=== PATIENT | female | born 1980 | race Two or more races ===

== ENCOUNTER 2016-10-25 05:04 | Inpatient (IN) | payer MEDICAID ==
[2016-10-25] MEDS ORDERED: LACTATED RINGERS 1,000 ML IV.SOLN ONE (05:05)
[2016-10-25] MEDS ORDERED: LACTATED RINGERS 1,000 ML ONE (05:08)
[2016-10-25] MEDS ORDERED: IV START KIT ONE (05:08)
[2016-10-25 05:25] VITALS: BMI 31.8
[2016-10-25] MEDS ORDERED: CEFAZOLIN SODIUM 2 GRAM DUPLEX 2 G in Premix (D5W) 50 ml 1 EACH IV PRN (05:39)
[2016-10-25 06:13] LABS: HEMATOCRIT 33.2 % (37.0-47.0); HEMOGLOBIN 11.2 gm/l (12.0-16.0); MEAN CORPUSCULAR HEMOGLOBIN 30.4 pg (27.0-31.0); MEAN CORPUSCULAR HGB CONC 33.7 g/dl (33.0-37.0); RED CELL DISTRIBUTION WIDTH 14.3 % (11.5-14.5)
[2016-10-25] MEDS: LACTATED RINGERS 1,000 ML IV SCH ×4 (06:51→23:13)
[2016-10-25] MEDS ORDERED: CEFAZOLIN SODIUM 2 GRAM DUPLEX 50 ML IV ONE (06:51)
[2016-10-25] MEDS ORDERED: FENTANYL 100 MCG/2 ML VIAL ONE (07:01)
[2016-10-25] MEDS ORDERED: OXYTOCIN 10 UNITS/ML VIAL ONE ×3 (07:01→08:34)
[2016-10-25] MEDS ORDERED: MORPHINE SULFATE (DURAMORPH) 1 MG/ML 10ML AMP ONE (07:01)
[2016-10-25] MEDS ORDERED: SPINAL PROCEDURAL TRAY 1 EACH ONE (07:07)
[2016-10-25] MEDS ORDERED: BUPIVACAINE 0.75% SPINAL AMPUL 2 ML ONE (07:11)
[2016-10-25] MEDS ORDERED: ONDANSETRON 4 MG/2ML 2 ML VIAL IV PRN ×2 (08:00→09:04)
[2016-10-25] MEDS ORDERED: MORPHINE SULFATE 2 MG/ML SYRINGE IV PRN (08:00)
[2016-10-25] MEDS ORDERED: HYDROMORPHONE HCL 2 MG/ML SYRINGE IV PRN (08:00)
[2016-10-25] MEDS ORDERED: EPHEDRINE SULFATE 50 MG/ML 1ML VIAL IV PRN (08:00)
[2016-10-25] MEDS ORDERED: NALOXONE HCL 0.4 MG/ML VIAL IV PRN (08:00)
[2016-10-25] MEDS ORDERED: HYDROMORPHONE HCL 1 MG/ML SYRINGE IV PRN (08:00)
[2016-10-25] MEDS ORDERED: PROMETHAZINE HCL 25 MG/ML VIAL IM PRN (08:00)
[2016-10-25] MEDS ORDERED: MORPHINE SULFATE 4 MG/ML SYRINGE IV PRN (08:00)
[2016-10-25] MEDS ORDERED: NALBUPHINE HCL 20 MG/ML AMP IV PRN (08:00)
[2016-10-25] MEDS ORDERED: MORPHINE SULFATE 10 MG/ML SYRINGE IV PRN (08:00)
[2016-10-25] MEDS ORDERED: DIPHENHYDRAMINE HCL 50 MG/1 ML VIAL IV PRN ×2 (08:00→09:04)
[2016-10-25] MEDS ORDERED: EPHEDRINE SULFATE UD SYR 25 MG 25 MG/5 ML SYRINGE IV ONE ×2 (08:15→08:36)
[2016-10-25] MEDS ORDERED: ONDANSETRON 4 MG/2ML 2 ML VIAL ONE (08:39)
[2016-10-25] MEDS ORDERED: KETOROLAC TROMETHAMINE 30 MG/ML 1 ML VIAL ONE (08:42)
[2016-10-25] MEDS ORDERED: DIPHENHYDRAMINE HCL 25 MG CAPSULE PO PRN (09:04)
[2016-10-25] MEDS ORDERED: LANOLIN 50 APPLIC/7G TUBE TP PRN (09:04)
[2016-10-25] MEDS ORDERED: MEASLES,MUMPS&RUBELLA VACCINE 0.5 ML VIAL SUB-Q V ONE (09:04)
--- NOTE | 2016-10-25 09:11 | PDOC37 ---
Procedure: Repeat Section Date of Procedure: 10/25/16 Start Time: 813 Preoperative Diagnosis: 1. 39 week intrauterine . 2. Repeat section Postoperative Diagnosis: Same Surgeon: Judith Whalen MD Assist: Elizabeth Chaparro MD Indication for Procedure: 36 year old, at 39 weeks 2 days with scheduled repeat section. Patient had a for non reassuring heart tones in 2011 and desired elective repeat. Risks were discussed including bleeding, infection, damage to surrounding organs, transfusion and hysterectomy. She elected to proceed. Anesthesia: Spinal by Dami Figueredo CRNA, with Duramorph Complications: None Estimated Blood Loss: 700 mLs IV Fluids: 3000 mLs of LR Medications: 2 gm of Ancef for routine prophylaxis. 20 units of Pitocin. Urine Output: 225 mLs of clear urine Findings: Fluid with very slight meconium. Normal uterus, ovaries, and tubes. Vertex, OA, male infant, apgars 9/9, weight 3985 gm (8 lb 13 oz). Procedure: The patient was taken to the operating room where spinal anesthesia was found to be adequate. She was then prepared and draped in the normal sterile fashion in the dorsal supine position with a leftward tilt. A timeout was performed. A Pfannensteil skin incision was then made with the scalpel and carried through to the underlying layer of fascia with the scalpel. The fascia was incised in the midline and the incision extended laterally with the Beauchamp scissors. The superior aspect of the fascial incision was then grasped with the Thomas clamps, elevated, and the underlying rectus muscles dissected off bluntly and sharply where needed. Attention was then turned to the inferior aspect of the incision which, in a similar fashion, was grasped, tented up with the Thomas clamps, and the rectus muscle dissected off bluntly and sharply with Beauchamp scissors. The rectus muscles were then in the midline, and the peritoneum was identified and entered bluntly. The peritoneal incision was then extended with good visualization of the bladder. The Carlos O retractor was inserted. The lower uterine segment incised in a transverse fashion with the scalpel. The uterine incision was then extended laterally by pulling superolaterally on both sides. Membranes were ruptured and fluid was very lightly meconium stained. The infant's head was flexed out of OA position and delivered atraumatically. The nose and mouth were suctioned with bulb suction and the cord was clamped and cut after a 1 minute delay. The was handed off to the waiting staff mine warfare officer. The placenta was then delivered with gentle cord traction. The uterus was then exteriorized and cleared of all clots and debris. The uterine incision was repaired with 0 vicryl in a running, locked fashion. A second layer of the same suture was used in an imbricating fashion to obtain excellent hemostasis. The gutters were cleared of all clots. The uterus was returned to the abdomen. The Carlos O retractor was removed. The peritoneum was closed with 2-0 Vicryl. The fascia was reapproximated with 0 Vicryl in a running fashion. The subcutaneous tissue was reapproximated with 0 plain gut in 4 interrupted sutures. The skin was closed with 4-0 Vicryl. The patient tolerated the procedure well. Sponge, lap and needle counts were correct times three. A debriefing was held at the end of the procedure with anesthesia and nursing staff. The patient was taken to the recovery room in stable condition.
[2016-10-25] MEDS: KETOROLAC TROMETHAMINE 30 MG/ML 1 ML VIAL IV PRN ×2 (15:33→22:04)
[2016-10-25] MEDS: IBUPROFEN 800 MG TABLET PO SCH ×3 (15:33→23:16)
[2016-10-25] MEDS: DOCUSATE SODIUM 100 MG CAPSULE PO SCH (22:04)
[2016-10-26] MEDS: KETOROLAC TROMETHAMINE 30 MG/ML 1 ML VIAL IV PRN (03:52)
[2016-10-26 06:57] LABS: HEMATOCRIT 29.3 % (37.0-47.0); HEMOGLOBIN 9.6 gm/l (12.0-16.0)
[2016-10-26] MEDS: LACTATED RINGERS 1,000 ML IV SCH ×3 (09:15→17:15)
[2016-10-26] MEDS: IBUPROFEN 800 MG TABLET PO SCH ×4 (09:29→21:19)
[2016-10-26] MEDS: FERROUS SULFATE (65 Fe) 325 MG TABLET PO SCH (09:50)
[2016-10-26] MEDS: PRENATAL VIT/FE FUMARATE/FA 1 TABLET PO SCH (09:50)
[2016-10-26] MEDS: DOCUSATE SODIUM 100 MG CAPSULE PO SCH ×2 (09:50→21:18)
--- NOTE | 2016-10-26 10:10 | PDOC44 ---
- Subjective Day: 1 (post-operative day 1) Patient doing well. States pain controlled with meds. Got OOB to chair. Mayen is still in. States passing gas. Tolerating PO with no nausea. Does not feel like her milk has come in, so she is supplementing with formula as well. Reports Flatus, Reports Pain Tolerable, Reports , Reports Lochia Light, Reports Tolerating Clear Liquids, Denies Nausea, Denies Vomiting - Objective Temp Pulse Resp BP Pulse Ox 97.9 F 85 16 106/57 10/26/16 07:35 10/26/16 07:35 10/26/16 07:35 10/26/16 07:35 Lab Results 10/26/16 06:20 Hgb 9.6 L Hct 29.3 L Current Medications Generic Name Dose Route Start Last Admin Trade Name Freq PRN Reason Stop Dose Admin Diphenhydramine HCl 25 - 50 mg 10/25/16 09:04 Benadryl PO Q6H PRN Itching (Mild/Moderate) Diphenhydramine HCl 25 - 50 mg 10/25/16 09:04 Benadryl IV Q6H PRN Itching (Severe) Docusate Sodium 100 mg 10/25/16 21:00 10/26/16 09:50 Colace PO 100 mg BID KARAN Administration Emollient Ointment 1 applic 10/25/16 09:04 10/25/16 17:46 [id number] TP 1 tube PRN PRN Administration sore nipples Ferrous Sulfate 325 mg 10/26/16 09:00 10/26/16 09:50 Ferrous Sulfate PO 325 mg DAILY KARAN Administration Lactated Ringer's 1,000 mls @ 125 mls/hr 10/25/16 09:15 10/26/16 09:28 Lactated Ringers IV Not Given .Q8H KARAN Ibuprofen 800 mg 10/25/16 09:15 10/26/16 09:50 Motrin PO 800 mg Q6H KARAN Administration Ketorolac Tromethamine 30 mg 10/25/16 09:04 10/26/16 03:52 Toradol IV 30 mg Q6H PRN Administration Pain (Mild/Moderate) Multivi/Iron Carb/Fe Sulf/FA/Prenat 1 tab 10/26/16 09:00 10/26/16 09:50 Plus PO 1 tab DAILY KARAN Administration Ondansetron HCl 4 mg 10/25/16 09:04 Zofran IV Q6H PRN Nausea/Vomiting Oxycodone/Acetaminophen 1 - 2 tab 10/25/16 09:04 Percocet 5/325 PO Q4H PRN Pain (Moderate) Sodium Chloride 10 ml 10/25/16 09:00 10/26/16 09:50 Normal Saline 10ml Flush IV 10 ml Q8HR KARAN Administration Sodium Chloride 10 ml 10/25/16 07:29 10/25/16 22:06 Normal Saline 10ml Flush IV 10 ml PRN PRN Administration - Physical Exam General: Afebrile, No Acute Distress Psych/Mental Status: Mood/Affect Appropriate, Bonding Well Neurological: Alert, Normal Speech Lungs: Clear to Auscultation Bilaterally, Normal Air Movement Cardiovascular: Regular Rate and Rhythm, Normal S1, Normal S2 Breast: Nipples Intact Fundus: Firm, Midline Extremities: Full ROM, No Edema, No Tenderness Skin: Normal Color, Warm, Dry, Intact, No Rash Wound BUSINESS ANALYSIS SPECIALIST: Dressing Clean/Dry/Intact - Problems:Assessment/Plan (1) delivery delivered Status: AcuteAssessment/Plan: POD#1 s/p RC/S Doing well Mayen out today Encourage ambulation, advance diet Continue routine post-op care BF support (2) Acute blood loss anemia Status: AcuteAssessment/Plan: Hgb 9.6 Will start iron supplement daily Disposition: Stable
[2016-10-26] MEDS: OXYCODONE/ACETAMINOPHEN 5/325 MG TABLET PO PRN ×2 (15:59→21:19)
[2016-10-27 10:01] VITALS: BP 114/60
[2016-10-27] MEDS: IBUPROFEN 800 MG TABLET PO SCH (10:02)
[2016-10-27] MEDS: PRENATAL VIT/FE FUMARATE/FA 1 TABLET PO SCH (10:02)
[2016-10-27] MEDS: FERROUS SULFATE (65 Fe) 325 MG TABLET PO SCH (10:02)
[2016-10-27] MEDS: DOCUSATE SODIUM 100 MG CAPSULE PO SCH (10:02)
--- NOTE | 2016-10-27 11:19 | PDOC39B ---
Hospital Course: ADMIT DATE: 10/25/16 DISCHARGE DATE: 10/27/16 ADMISSION DIAGNOSES: IUP at term Previous csxn due to NRFHT PROCEDURES: Repeat LTCS HISTORY OF PRESENT ILLNESS: 36 year old G2 T1 L1 at 39 weeks 2 days presenting for repeat csxn HOSPITAL COURSE: The patient was admitted for scheduled repeat csxn. Underwent repeat LTCS without difficulty. Post op course was unremarkable, and pt desired DC home on POD#2. By day of discharge the patient is ambulating, eating, voiding, and passing flatus without difficulty. Pain is controlled and lochia is appropriate. She is and bottle feeding. - Physical Exam Vital Signs: Temp Pulse Resp BP Pulse Ox 99.1 F 75 16 114/60 10/27/16 09:58 10/27/16 09:58 10/27/16 09:58 10/27/16 09:58 General: Afebrile, No Acute Distress Psych/Mental Status: Mood/Affect Appropriate, Judgment/Insight Intact, Bonding Well Neurological: Grossly Intact, Alert, Normal Gait, Normal Speech HEENT: Atraumatic, Mucous membr. moist/pink Lungs: Clear to Auscultation Bilaterally Cardiovascular: Regular Rate and Rhythm Breast: Soft Fundus: Firm, Midline, Below Umbilicus Abdomen: Normal Bowel Sounds Extremities: Full ROM, No Edema Skin: Normal Color, Warm, Dry, Intact, No Rash Wound: Well Approximated (incision c/d/i, steristrips in place), No Drainage, No Erythema, No Edema - Discharge Diagnosis (1) Acute blood loss anemia Status: AcuteAssessment/Plan: Hgb 9.6 Cont iron supplement daily Resume PNV (2) delivery delivered Status: AcuteAssessment/Plan: POD#2 s/p RC/S Doing well. Desires DC home DC home BF support post csxn precautions given no driving or heavy lifting - Discharge Plan Condition: Good Disposition: Home Instruction Forms: Section Discharge Instructions Prescriptions: Docusate Sodium [COLACE 100 MG CAPSULE (F)] 100 mg PO BID #60 capsule Ibuprofen [IBUPROFEN 800 MG TABLET (F)] 800 mg PO Q6H PRN #60 tablet PRN Reason: Pain FERROUS SULFATE (65 Fe) [IRON FERROUS SULFATE 325 MG TABLET (F)] 325 mg PO DAILY #60 tablet Lanolin [LANOLIN 7 G TUBE (SHF)] 1 applic TP PRN PRN #1 tube PRN Reason: Sore Nipples Oxycodone HCl/Acetaminophen [PERCOCET 5/325 MG TABLET (F)] 1 - 2 tab PO Q4H PRN #30 tablet PRN Reason: Pain (Moderate) Follow-Up: Kacey Madrigal MD [Staff Physician] - Within 1-2 days (Correction: PCP [facility] to call to sched)
[2016-10-27] MEDS ORDERED: LACTATED RINGERS 1,000 ML ONE (21:32)
== END 2016-10-27 14:07 | disposition home or self-care (01) | DRG 765 ==
LOC: FBC 05:04 → EDSTATUS 10-30 05:02
PROVIDERS: ADMIT Family Medicine; ATTEND Family Medicine
PROC: 10D00Z1 Extraction of Products of Conception, Low, Open Approach (ICD-10-PCS; principal; 2016-10-25)
DX: O34.211 Maternal care for low transverse scar from previous cesarean delivery (principal); O77.0 Labor and delivery complicated by meconium in amniotic fluid; O99.02 Anemia complicating childbirth; D62 Acute posthemorrhagic anemia; Z3A.39 39 weeks gestation of pregnancy; Z37.0 Single live birth